=== PATIENT | male | born 1950 | race Caucasian/White ===

== ENCOUNTER 2017-03-13 07:14 | Emergency (ER) | payer OTHER, MEDICARE ==
[~2017-03-13] VITALS: Ht 182.9 cm; Wt 95.7 kg
[~2017-03-13 07:14] MED LIST: ASPI-630 PO; ASPI325T11 PO; ATOR40TA59 PO; CA C1TAB62 PO; CANA100T PO; CARV12.52 PO; CELE200C PO; CETI10CA PO; CINN500C2 PO; CYCL10TA2 PO; DIPH25CA58 PO; DIPH50CA PO; ERYT250T16 PO; EXEN2VIA SQ; FENO145T2 PO; HYDR-2758 PO; IBUP-1060 PO; IBUP100O24 PO; IBUP200T77 PO; INSU100C SQ; INSU100I13 SQ; LEVO500T59 PO; LEVO75TA5 PO; LISI-338 PO; MULT-658 PO; OMEG-113 PO; OMEG300C PO; OXYC-323 PO; POTA10TA12 PO; POTA99TA3 PO; POTASSIUM CHLO10 MEQ PO; PSYL0.527 PO
[2017-03-13 07:20] VITALS: BP 140/96
--- NOTE | 2017-03-13 07:46 | PHYS DOC ---
Past Medical History Past Medical History: Diabetes-Type II, High Cholesterol, Hypertension, Kidney Stone Past Surgical History: Appendectomy, Knee Replacement (Left) Additional Past Surgical Histo: kidney stone removal, hernia repair, left knee arthroscopy Alcohol Use: Rarely Drug Use: None Adult General Chief Complaint Chief Complaint: LOWER EXT PAIN [facility] HPI Patient is a 67 year old male who presents with atraumatic right foot pain developing over the past 2 days. Has constant pain that is achy and radiates proximally with use of his foot. Thought he had plantar fasciitis, so he has been stretching without relief of his symptoms. States it is slightly swollen and has some red discoloration to his medial foot. Denies injury, numbness, tingling, weakness, fever or chills. Review of Systems Review of Systems Constitutional: Denies fever or chills [] Eyes: Denies change in visual acuity, redness, or eye pain [] HENT: Denies nasal congestion or sore throat [] Respiratory: Denies cough or shortness of breath [] Cardiovascular: No additional information not addressed in HPI [] GI: Denies abdominal pain, nausea, vomiting, bloody stools or diarrhea [] : Denies dysuria or hematuria [] Musculoskeletal: Denies back pain [] Integument: Denies rash or skin lesions [] Neurologic: Denies headache, focal weakness or sensory changes [] Endocrine: Denies polyuria or polydipsia [] Allergies Allergies Allergies Coded Allergies Type Severity Reaction Last Updated Verified Penicillins Allergy Intermediate 09/26/16 Yes Physical Exam Physical Exam Constitutional: Well developed, well nourished, no acute distress, non-toxic appearance. [] HENT: Normocephalic, atraumatic, bilateral external ears normal, oropharynx moist, nose normal. [] Eyes: PERRLA, EOMI. [] Neck: Normal range of motion, supple. [] Cardiovascular: Extremities warm and well-perfused [] Lungs & Thorax: Respirations even and unlabored [] Abdomen: soft, no tenderness. [] Skin: Warm, dry, no erythema, no rash. [] Back: Normal ROM. [] Extremities: LLE with no obvious deformity; has some ecchymotic discoloration to medial mid foot; mildly tender to medial mid foot soft tissues with no induration/crepitance/warmth/fluctuance; Can flex/ex toes; Can dorsiflex/ plantar flex ankle; No medial or lateral malleolar tenderness; No 5 th metatarsal base tenderness; SILT holloway/sa/sp/dp/tib distributions; dp and pt pulses equal bilaterally Neurologic: Alert and oriented X 3, normal motor function, normal sensory function, no focal deficits noted. [] Psychologic: Affect normal, judgement normal, mood normal. [] Current Patient Data Vital Signs Vital Signs Date Time Temp Pulse Resp B/P (MAP) Pulse Ox O2 Delivery O2 Flow Rate FiO2 03/13/17 07:20 97.9 96 18 140/96 (111) 94 Room Air 97.9 Radiology/Procedures Radiology/Procedures Ultrasound venous Doppler right lower extremity IMPRESSION: 1. There is no sonographic evidence of deep vein thrombosis in the right lower extremity. 2. Small right popliteal cyst DICTATED and SIGNED BY: TK POWER MD DATE: 03/13/17 0804 Course & Med Decision Making Course & Med Decision Making Pertinent Labs and Imaging studies reviewed. (See chart for details) Imaging is unremarkable. Discussed supportive care. Return precautions given. He understands and agrees with plan. Dragon Disclaimer Dragon Disclaimer This electronic medical record was generated, in whole or in part, using a voice recognition dictation system. Departure Departure Impression: Primary Impression: Right foot pain Disposition: 01 HOME, SELF-CARE Condition: STABLE Referrals: ANTONIO HOLLINGSWORTH (PCP) Patient Instructions: Musculoskeletal Pain Additional Instructions: Take ibuprofen or tylenol as needed for pain. Use ice to help with swelling and pain. Stretch. Follow up with your primary care doctor within 1 week. Return for any concerns. Tai MCCARTHY MD Mar 13, 2017 07:46
--- NOTE | 2017-03-13 08:08 | RAD ---
Right lower extremity venous ultrasound, 03/13/2017 : History: Right foot and ankle swelling Duplex evaluation including grayscale, color flow and spectral Doppler analysis was performed. The femoral and popliteal veins show no filling defects to suggest DVT. The visualized deep veins in the right calf are unremarkable. Incidental note is made of a 2.0 x 0.8 x 5.8 cm elongated fluid collection in the right popliteal fossa compatible with a Davies's cyst. IMPRESSION: 1. There is no sonographic evidence of deep vein thrombosis in the right lower extremity. 2. Small right popliteal cyst
== END 2017-03-13 08:26 | disposition home or self-care (01) ==
LOC: ER 07:14
DX: M79.671 Pain in right foot (principal); E11.9 Type 2 diabetes mellitus without complications; E78.00 Pure hypercholesterolemia, unspecified; I10 Essential (primary) hypertension; Z90.49 Acquired absence of other specified parts of digestive tract; Z87.442 Personal history of urinary calculi; Z96.652 Presence of left artificial knee joint; Z88.0 Allergy status to penicillin
CPT/HCPCS: 93971; 99284-25

== ENCOUNTER → 2017-03-26 | Outpatient (CLI) | payer MEDICARE, OTHER ==
[2017-03-13 07:20] VITALS: BP 140/96
--- NOTE | 2017-03-26 10:04 | RAD ---
MR of the right foot HISTORY: Medial arch and ankle pain. TECHNIQUE: Standard multiplanar sequences were obtained. FINDINGS: Lisfranc ligament complex is intact as is tarsometatarsal alignment. Thickening with increased signal identified at the distal posterior tibial tendon compatible with tendinosis, without high-grade tear. Moderate thickening with mildly increased signal within the plantar aponeurosis with small subjacent enthesophyte and mild subjacent marrow edema. Subtalar joints are patent. Tarsal sinus intact. No bone lesion or acute fracture. No abnormal soft tissue fluid collection. IMPRESSION: 1. Distal posterior tibial tendinosis with high-grade tear or rupture. 2. Moderate plantar fasciitis. Electronically signed by: Maurice Kwon MD (03/26/2017 10:01 AM)
== END | disposition home or self-care (01) ==
LOC: MRI 07:21
PROVIDERS: ATTEND Podiatrist Foot & Ankle Surgery
DX: M25.571 Pain in right ankle and joints of right foot (principal)
CPT/HCPCS: 73718

== ENCOUNTER 2017-04-07 17:19 | Emergency (ER) | payer OTHER ==
[~2017-04-07] VITALS: Ht 182.9 cm; Wt 98.4 kg
[2017-04-07] MEDS ORDERED: IV NORMAL SALINE 1000ML BAG 1,000 ML IV SCH (17:47)
[2017-04-07] MEDS ORDERED: ONDANSETRON PF 4 MG/2 ML VIAL. IV ONE (18:00)
[2017-04-07 18:06] LABS: BASO % 1 % (0-3); EOS % 1 % (0-3); HEMATOCRIT 44.1 % (39.0-53.0); HEMOGLOBIN 15.2 g/dL (13.0-17.5); LYMPH # 0.9 x10^3/uL (1.0-4.8); LYMPH % 11 % (24-48); MEAN CORPUSCULAR HEMOGLOBIN 30 pg (25-35); MEAN CORPUSCULAR HGB CONC 35 g/dL (31-37); MEAN CORPUSCULAR VOLUME 87 fL (79-100); MONO % 8 % (0-9); NEUT % 79 % (31-73); PLATELET COUNT 260 x10^3/uL (140-400); RED BLOOD COUNT 5.07 x10^6/uL (4.30-5.70); WHITE BLOOD COUNT 8.5 x10^3/uL (4.0-11.0)
--- NOTE | 2017-04-07 18:06 | PHYS DOC ---
Past Medical History Past Medical History: Diabetes-Type II, High Cholesterol, Heart Disease, Hypertension, Hypothyroid, Kidney Stone Past Surgical History: Appendectomy, Knee Replacement, Tonsillectomy Additional Past Surgical Histo: lithotripsy, hernia repair, left knee arthroscopy Alcohol Use: Occasionally Drug Use: None Adult General Chief Complaint Chief Complaint: CONTISPATION HPI HPI Patient is a 67 year old male who presents with complaint of constipation and left lower quadrant abdominal pain. Patient states that his symptoms have been present over the past couple days. Patient states that he had a very small bowel movement earlier today that was hard. Patient states he had a normal bowel movement yesterday. Patient states he started developing worsening pain along the left lower quadrant. Patient denies any fevers but was noted to have a mildly elevated temperature during triage. Patient has had nausea no vomiting. Patient states he's had history of urinary tract infection in the past this had no problems with known colitis or diverticulitis in the past. Patient states that he tried taking a Fleet enema earlier today but states that he had only return of fluid in no stool. Patient denies any pressure or impaction in the rectum. Patient rates his pain currently as 6 out of 10. Review of Systems Review of Systems Constitutional: Denies fever or chills [] Eyes: Denies change in visual acuity, redness, or eye pain [] HENT: Denies nasal congestion or sore throat [] Respiratory: Denies cough or shortness of breath [] Cardiovascular: Denies chest pain or edema [] GI: Constipation, nausea, abdominal pain [] : Denies dysuria or hematuria [] Musculoskeletal: Denies back pain or joint pain [] Integument: Denies rash or skin lesions [] Neurologic: Denies headache, focal weakness or sensory changes [] Current Medications Current Medications Current Medications Medications (Trade) Dose Ordered Sig/Judy Start Time Stop Time Status Last Admin Dose Admin Ciprofloxacin (Cipro) 500 mg 1X ONCE 04/07/17 21:45 04/07/17 21:46 DC Info (Do NOT chart on this entry -- for MONITORING) 1 each PRN DAILY PRN 04/07/17 18:15 04/09/17 18:14 Iohexol (Omnipaque 300 Mg/ml) 75 ml 1X ONCE 04/07/17 18:15 04/07/17 18:16 DC 04/07/17 18:40 75 ML Metronidazole (Flagyl) 500 mg 1X ONCE 04/07/17 21:45 04/07/17 21:46 DC Ondansetron HCl (Zofran) 4 mg 1X ONCE 04/07/17 18:00 04/07/17 18:02 DC 04/07/17 19:08 4 MG Sodium Chloride 1,000 ml @ 1,000 mls/hr Q1H 04/07/17 17:47 04/07/17 18:46 DC 04/07/17 19:07 1,000 MLS/HR Allergies Allergies Allergies Coded Allergies Type Severity Reaction Last Updated Verified Penicillins Allergy Intermediate 09/26/16 Yes Physical Exam Physical Exam Constitutional: Alert, febrile, appears in mild discomfort [] HENT: Normocephalic, atraumatic, bilateral external ears normal, oropharynx moist, no oral exudates, nose normal. [] Eyes: PERRLA, EOMI, conjunctiva normal, no discharge. [] Neck: Normal range of motion, no tenderness, supple, no stridor. [] Cardiovascular:Heart rate regular rhythm, no murmur [] Lungs & Thorax: Bilateral breath sounds clear to auscultation [] Abdomen: Bowel sounds normal, soft, mild left lower quadrant and suprapubic tenderness to palpation, no guarding or rebound tenderness, no masses, no pulsatile masses. [] Skin: Warm, dry, no erythema, no rash. [] Back: No tenderness, no CVA tenderness. [] Extremities: No tenderness, no cyanosis, no clubbing, ROM intact, no edema. [] Neurologic: Alert and oriented X 3, normal motor function, normal sensory function, no focal deficits noted. [] Current Patient Data Vital Signs Vital Signs Date Time Temp Pulse Resp B/P (MAP) Pulse Ox O2 Delivery O2 Flow Rate FiO2 04/07/17 20:35 85 161/96 (117) 96 Room Air 04/07/17 17:39 99.5 16 99.5 Lab Values Laboratory Tests Test 04/07/17 17:59 04/07/17 20:00 White Blood Count 8.5 x10^3/uL (4.0-11.0) Red Blood Count 5.07 x10^6/uL (4.30-5.70) Hemoglobin 15.2 g/dL (13.0-17.5) Hematocrit 44.1 % (39.0-53.0) Mean Corpuscular Volume 87 fL (79-100) Mean Corpuscular Hemoglobin 30 pg (25-35) Mean Corpuscular Hemoglobin Concent 35 g/dL (31-37) Red Cell Distribution Width 15.0 % (11.5-14.5) H Platelet Count 260 x10^3/uL (140-400) Neutrophils (%) (Auto) 79 % (31-73) H Lymphocytes (%) (Auto) 11 % (24-48) L Monocytes (%) (Auto) 8 % (0-9) Eosinophils (%) (Auto) 1 % (0-3) Basophils (%) (Auto) 1 % (0-3) Neutrophils # (Auto) 6.7 x10^3uL (1.8-7.7) Lymphocytes # (Auto) 0.9 x10^3/uL (1.0-4.8) L Monocytes # (Auto) 0.7 x10^3/uL (0.0-1.1) Eosinophils # (Auto) 0.1 x10^3/uL (0.0-0.7) Basophils # (Auto) 0.0 x10^3/uL (0.0-0.2) Sodium Level 141 mmol/L (136-145) Potassium Level 4.3 mmol/L (3.5-5.1) Chloride Level 104 mmol/L (98-107) Carbon Dioxide Level 28 mmol/L (21-32) Anion Gap 9 (6-14) Blood Urea Nitrogen 17 mg/dL (8-26) Creatinine 0.9 mg/dL (0.7-1.3) Estimated GFR (Cockcroft-Gault) 84.4 BUN/Creatinine Ratio 19 (6-20) Glucose Level 148 mg/dL (70-99) H Calcium Level 9.7 mg/dL (8.5-10.1) Total Bilirubin 0.5 mg/dL (0.2-1.0) Aspartate Amino Transferase (AST) 22 U/L (15-37) Alanine Aminotransferase (ALT) 28 U/L (16-63) Alkaline Phosphatase 83 U/L (46-116) Total Protein 7.5 g/dL (6.4-8.2) Albumin 3.9 g/dL (3.4-5.0) Albumin/Globulin Ratio 1.1 (1.0-1.7) Lipase 142 U/L (73-393) Urine Collection Type Unknown Urine Color Yellow Urine Clarity Clear Urine pH 6.5 Urine Specific [place] >=1.030 Urine Protein Negative mg/dL (NEG-TRACE) Urine Glucose (UA) >=1000 mg/dL (NEG) Urine Ketones (Stick) Negative mg/dL (NEG) Urine Blood Negative (NEG) Urine Nitrite Negative (NEG) Urine Bilirubin Negative (NEG) Urine Urobilinogen Dipstick 0.2 mg/dL (0.2 mg/dL) Urine Leukocyte Esterase Negative (NEG) Urine RBC Occ /HPF (0-2) Urine WBC Occ /HPF (0-4) Urine Squamous Epithelial Cells Few /LPF Urine Bacteria 0 /HPF (0-FEW) Laboratory Tests 04/07/17 17:59 Laboratory Tests 04/07/17 17:59 EKG EKG Not performed [] Radiology/Procedures Radiology/Procedures [facility] [address] [place] [address] IMAGING REPORT Signed PATIENT: MYRNA HARVEY ACCOUNT: [id number] : 1950 LOCATION: ER AGE: 67 SEX: M EXAM STATUS: REG ER ORD. PHYSICIAN: GAYLE SAN MD REASON: left lower quadrant abdominal pain PROCEDURE: CT ABD PELV W/ IV CONTRST ONLY CT of the abdomen and pelvis with contrast, 04/07/2017: HISTORY: Left lower quadrant pain Multidetector imaging was performed following an IV bolus injection of iodinated contrast material. No oral contrast material was administered for this study. The liver is unremarkable. No gallbladder abnormality is seen. The pancreas shows no abnormality. The spleen is of normal size. There is mild bilateral renal cortical scarring. There are single small cysts in both kidneys. Several small medullary calcifications are noted bilaterally. The largest of these on the left measures 6 mm. There is no evidence of hydronephrosis. Aortoiliac calcific plaquing is present without evidence of aneurysm. No abdominal or pelvic adenopathy is seen. There is mild nonspecific prostatic enlargement. There appears to be intestinal malrotation with the majority of the small bowel loops lying on the right and redundant loops of colon on the left. There is a moderate amount of stool in portions of the colon. Several small sigmoid diverticula are seen. No paracolic inflammation or obstruction is evident. No free fluid or free air is identified in the abdomen or pelvis. Mild scattered degenerative changes are present in the spine with a slight spondylolisthesis at L5-S1. IMPRESSION: 1. Small bilateral renal cysts. 2. Small nonobstructing bilateral intrarenal calculi. 3. Intestinal malrotation. 4. Minimal diverticulosis. 5. Nonspecific prostatic enlargement. Electronically signed by: Tom Fernandes MD (04/07/2017 7:19 PM) DICTATED and SIGNED BY: TOM FERNANDES MD DATE: 04/07/171899 CC: ANTONIO HOLLINGSWORTH; GAYLE SAN MD ~ [] Course & Med Decision Making Course & Med Decision Making Pertinent Labs and Imaging studies reviewed. (See chart for details) Patient's CT scan was interpreted as normal by the radiologist. On my evaluation , the patient does show signs of mild clonic wall thickening with no evidence of fecal impaction. Given the patient's mildly elevated temperature, early colitis or possible diverticulitis is a consideration. For this reason I have electively chosen to treat the patient empirically for possible colitis/ diverticulitis. Patient started on Flagyl and Cipro. The patient was written for prescriptions for Cipro, Flagyl, Nageezi, and Zofran for outpatient treatment. Advise follow-up in 3-5 days a primary doctor for reevaluation and return to emergency department for any worsening symptoms. Patient voiced understanding and in agreement with treatment plan. Dragon Disclaimer Dragon Disclaimer This electronic medical record was generated, in whole or in part, using a voice recognition dictation system. Departure Departure Impression: Primary Impression: Abdominal pain Additional Impression: Constipation Disposition: 01 HOME, SELF-CARE Condition: IMPROVED Referrals: ANTONIO HOLLINGSWORTH (PCP) Patient Instructions: Abdominal Pain (Nonspecific), Constipation, Adult Additional Instructions: Follow-up with your primary doctor in the next 3-5 days. Return to the emergency department for any worsening symptoms. Scripts Ondansetron (ZOFRAN ODT) 4 Mg Tab.rapdis 1 TAB SL Q8HRS Y for NAUSEA/VOMITING, #15 TAB Prov: GAYLE SAN MD 04/07/17 Hydrocodone/Apap 5-325 (NORCO 5-325 TABLET) 1 Each Tablet 1-2 TAB PO Q4-6HRS Y for PAIN, #20 TAB Prov: GAYLE SAN MD 04/07/17 Metronidazole (FLAGYL) 500 Mg Tablet 500 MG PO TID, #30 TAB Prov: GAYEL SAN MD 04/07/17 Ciprofloxacin Hcl (CIPRO) 500 Mg Tablet 1 TAB PO BID, #20 TAB Prov: GAYLE SAN MD 04/07/17 Problem Qualifiers Primary Impression: Abdominal pain Abdominal location: left lower quadrant Qualified Codes: R10.32 - Left lower quadrant pain Additional Impression: Constipation Constipation type: unspecified constipation type Qualified Codes: K59.00 - Constipation, unspecified GAYLE SAN MD Apr 07, 2017 18:06
[2017-04-07] MEDS ORDERED: IOHEXOL 300 MG/ML 75 ML VIAL IV ONE (18:15)
[2017-04-07] MEDS ORDERED: CONTRAST GIVEN MC PRN (18:15)
[2017-04-07 18:29] LABS: CALCIUM 9.7 mg/dL (8.5-10.1); CREATININE 0.9 mg/dL (0.7-1.3); GFR 84.4; POTASSIUM 4.3 mmol/L (3.5-5.1)
[2017-04-07 18:35] LABS: ALBUMIN 3.9 g/dL (3.4-5.0); ALBUMIN/GLOBULIN RATIO 1.1 (1.0-1.7); TOTAL BILIRUBIN 0.5 mg/dL (0.2-1.0); TOTAL PROTEIN 7.5 g/dL (6.4-8.2)
--- NOTE | 2017-04-07 19:22 | RAD ---
CT of the abdomen and pelvis with contrast, 04/07/2017: HISTORY: Left lower quadrant pain Multidetector imaging was performed following an IV bolus injection of iodinated contrast material. No oral contrast material was administered for this study. The liver is unremarkable. No gallbladder abnormality is seen. The pancreas shows no abnormality. The spleen is of normal size. There is mild bilateral renal cortical scarring. There are single small cysts in both kidneys. Several small medullary calcifications are noted bilaterally. The largest of these on the left measures 6 mm. There is no evidence of hydronephrosis. Aortoiliac calcific plaquing is present without evidence of aneurysm. No abdominal or pelvic adenopathy is seen. There is mild nonspecific prostatic enlargement. There appears to be intestinal malrotation with the majority of the small bowel loops lying on the right and redundant loops of colon on the left. There is a moderate amount of stool in portions of the colon. Several small sigmoid diverticula are seen. No paracolic inflammation or obstruction is evident. No free fluid or free air is identified in the abdomen or pelvis. Mild scattered degenerative changes are present in the spine with a slight spondylolisthesis at L5-S1. IMPRESSION: 1. Small bilateral renal cysts. 2. Small nonobstructing bilateral intrarenal calculi. 3. Intestinal malrotation. 4. Minimal diverticulosis. 5. Nonspecific prostatic enlargement. Electronically signed by: Tom Fernandes MD (04/07/2017 7:19 PM)
[2017-04-07 20:13] LABS: BILIRUBIN,URINE NEGATIVE (NEG); GLUCOSE,URINE >=1000 mg/dL (NEG); NITRITE,URINE NEGATIVE (NEG); PH,URINE 6.5; PROTEIN,URINE NEGATIVE (NEG-TRACE); UROBILINOGEN,URINE 0.2 mg/dL (0.2 mg/dL)
[2017-04-07 20:33] LABS: BACTERIA,URINE 0 /HPF (0-FEW); RBC,URINE OCC /HPF (0-2); WBC,URINE OCC /HPF (0-4)
[2017-04-07 20:34] LABS: SQUAMOUS EPITHELIAL CELL,UR FEW /LPF
[2017-04-07] MEDS ORDERED: ONDA4TAB10 SL (21:33)
[2017-04-07] MEDS ORDERED: HYDR-971 PO (21:33)
[2017-04-07] MEDS ORDERED: METR500T PO (21:33)
[2017-04-07] MEDS ORDERED: CIPR500T94 PO (21:33)
[2017-04-07] MEDS ORDERED: CIPROFLOXACIN HCL 250 MG TABLET. PO ONE (21:45)
[2017-04-07] MEDS ORDERED: metroNIDAZOLE 500 MG TABLET PO ONE (21:45)
[2017-04-07 22:00] VITALS: BP 157/97
== END 2017-04-07 22:15 | disposition home or self-care (01) ==
LOC: ER 17:19
DX: K59.00 Constipation, unspecified (principal); E11.9 Type 2 diabetes mellitus without complications; E78.00 Pure hypercholesterolemia, unspecified; I11.9 Hypertensive heart disease without heart failure; E03.9 Hypothyroidism, unspecified; Z87.442 Personal history of urinary calculi; Z90.49 Acquired absence of other specified parts of digestive tract; Z87.440 Personal history of urinary (tract) infections; Z96.652 Presence of left artificial knee joint; Z88.0 Allergy status to penicillin
CPT/HCPCS: 36415; 74177; 80053; 81001; 83690; 85027; 96361; 96374; 99285; J2405; J7030; Q9967

== ENCOUNTER → 2019-12-04 | Outpatient (CLI) | payer MEDICARE ==
[~2019-12-04] MED LIST changes: +CARV12.511 PO; -CARV12.52 PO; +CIPR500T94 PO; -FENO145T2 PO; +FENO145T3 PO; -HYDR-2758 PO; +HYDR-2761 PO; +HYDR-3164 PO; -IBUP100O24 PO; +IBUP100O25 PO; +METR500T PO; +ONDA4TAB10 SL; -OXYC-323 PO; +OXYC1TAB15 PO; +POTASSIUM CHLO10 ME1 PO; -POTASSIUM CHLO10 MEQ PO
--- NOTE | 2019-12-04 11:00 | KCIC ---
MR of the right shoulder HISTORY: Impingement syndrome. Chronic pain. TECHNIQUE: Routine multiplanar sequences are obtained. FINDINGS: The acromioclavicular joint is degenerative. Mild undersurface mass effect. Generalized rotator cuff tendinosis. Broad irregular partial-thickness bursal surface tearing of the supraspinatus tendon partial thickness articular side tearing of the supraspinatus tendon. There is some ill-defined full-thickness through and through tearing at the myotendinous junction over a short segment of supraspinatus tendon, series 6, image 13 and 14. No broad fluid filled gap is seen however. No retraction. Mild subdeltoid bursal effusion. No significant glenohumeral joint effusion. Signal within the posterosuperior labrum, accentuated by smoke motion degradation but suspicious for a small degenerative tear. Biceps tendon is intact. No acute fracture. No aggressive bone destruction. IMPRESSION: 1. Generalized rotator cuff tendinosis. Articular and bursal surface tearing of the supraspinatus tendon, with a small component of full-thickness subcentimeter tearing at the myotendinous junction. No retraction. 2. Small posterosuperior labral tear. Electronically signed by: Maurice Kwon MD (12/04/2019 10:57 AM) [id number]
== END ==
LOC: KCIC MRI 07:48
PROVIDERS: ATTEND Orthopaedic Surgery
DX: M75.111 Incomplete rotator cuff tear or rupture of right shoulder, not specified as traumatic (principal); M75.41 Impingement syndrome of right shoulder
CPT/HCPCS: 73221

== ENCOUNTER 2020-06-03 19:03 | Emergency (ER) | payer MEDICARE ==
[~2020-06-03] VITALS: Ht 180.3 cm; Wt 89.0 kg
--- NOTE | 2020-06-03 19:52 | PHYS DOC ---
Past Medical History Past Medical History: Diabetes-Type II, High Cholesterol, Heart Disease, Hypertension, Hypothyroid, Kidney Stone Past Surgical History: Appendectomy, Knee Replacement, Tonsillectomy Additional Past Surgical Histo: lithotripsy, hernia repair, left knee arthroscopy Smoking Status: Never Smoker Alcohol Use: Occasionally Drug Use: None General Adult EDM: Chief Complaint: CONSTIPATION HPI: HPI: Patient is a 70 year old male who presents with a chief complaint of constipation. Patient has had constipation for last 2 days. Patient recently had rotator cuff surgery and is taking hydrocodone has not had a bowel movement 2 days. Patient describes some moderate left lower quadrant crampy abdominal pain that radiates to the back. Pain is worse with palpation and certain movem ents pain is intermittent. Patient denies any nausea vomiting or fever. Review of Systems: Review of Systems: Constitutional: Denies fever or chills. [] Eyes: Denies change in visual acuity. [] HENT: Denies nasal congestion or sore throat. [] Respiratory: Denies cough or shortness of breath. [] Cardiovascular: Denies chest pain or edema. [] GI: Complains abdominal pain and constipation but no nausea vomiting or diarrhea : Denies dysuria. [] Musculoskeletal: Denies back pain or joint pain. [] Integument: Denies rash. [] Neurologic: Denies headache, focal weakness or sensory changes. [] Endocrine: Denies polyuria or polydipsia. [] Lymphatic: Denies swollen glands. [] Psychiatric: Denies depression or anxiety. [] Heart Score: Risk Factors: Risk Factors: DM, Current or recent (<one month) smoker, HTN, HLP, family history of CAD, obesity. Risk Scores: Score 0 - 3: 2.5% MACE over next 6 weeks - Discharge Home Score 4 - 6: 20.3% MACE over next 6 weeks - Admit for Clinical Observation Score 7 - 10: 72.7% MACE over next 6 weeks - Early Invasive Strategies Allergies: Allergies: Allergies Coded Allergies Type Severity Reaction Last Updated Verified Penicillins Allergy Intermediate 09/26/16 Yes Physical Exam: PE: Constitutional: Well developed, well nourished, no acute distress, non-toxic appearance. [] HENT: Normocephalic, atraumatic, bilateral external ears normal, no trismus, nose normal. [] Eyes: PERRLA, EOMI, conjunctiva normal, no discharge. [] Neck: Normal range of motion, no tenderness, supple, no stridor. [] Cardiovascular:Heart rate regular rhythm, peripheral pulses intact, cap refill brisk Lungs & Thorax: Bilateral breath sounds clear, no respiratory distress Abdomen: Mild distention with left lower quadrant tenderness no guarding or rebound no pulsatile masses Skin: Warm, dry, no erythema, no rash. [] Back: No tenderness, no CVA tenderness. [] Extremities: Limited range of motion right shoulder Neurologic: Alert and oriented X 3, normal motor function, normal sensory function, no focal deficits noted. [] Psychologic: Affect normal, judgement normal, mood normal. [] Current Patient Data: Vital Signs: Vital Signs Date Time Temp Pulse Resp B/P (MAP) Pulse Ox O2 Delivery O2 Flow Rate FiO2 06/03/20 19:35 98.0 107 18 128/83 (98) 92 Room Air 98.0 EKG: EKG: [] Radiology/Procedures: Radiology/Procedures: [] Course & Med Decision Making: Course & Med Decision Making Pertinent Labs and Imaging studies reviewed. (See chart for details) [] Patient reassessed at 10:25 PM and is having a bowel movement feels much better. 70-year-old male presents with constipation was caused by opiates following shoulder surgery. Patient was placed on a stool softener and will stop taking his opiates. Patient with bowel movement ER. Fly Disclaimer: Fly Disclaimer: This electronic medical record was generated, in whole or in part, using a voice recognition dictation system. Departure Departure Impression: Primary Impression: Constipation Disposition: 01 HOME, SELF-CARE Condition: STABLE Referrals: ANTONIO HOLLINGSWORTH (PCP) 2-3 DAYS Patient Instructions: Constipation, Adult Additional Instructions: EMERGENCY DEPARTMENT GENERAL DISCHARGE INSTRUCTIONS THANK YOU for coming to [facility] Emergency Department (ED) today and trusting us with your care. We trust that you had a positive experience in our Emergency Department. If you wish to speak to the department Management you can contact the emergency department coordinator at . YOUR FOLLOW UP INSTRUCTIONS ARE FOLLOWS: Do you have a private doctor? If you do not have a private doctor, please ask for a resource list of physicians or clinics that may be able to assist you with follow up care. The Emergency Physician has interpreted your x-rays. The X-ray specialist will also review them. If there is a change in the findings you will be notified in 48 hours when at all possible. A lab test or lab culture may have been done, your results will be reviewed and you will be notified if you need a change in treatment. ADDITIONAL INSTRUCTIONS AND INFORMATION Your care today has been supervised by a physician who is specially trained in emergency care. Many problems require more than one evaluation for a complete diagnosis and treatment. We recommend that you schedule your follow up appointment as recommended to ensure complete treatment of your illness or injury. If you are unable to obtain follow up care and continue to have a problem, or if your condition worsens we recommend that you return to the ED. We are not able to safely determine your condition over the phone nor are we able to give sound medical advice over the phone. For these safety reasons, if you call for medical advice we will ask you to come to the ED for further evaluation If you have any questions regarding these discharge instructions please call the ED at . SAFETY INFORMATION In the interest of safety, wellness, and injury prevention; we encourage you to wear your seatbelt, if you smoke; quit smoking, and we encourage your family to use protective helmet for bicycling and other sporting events that present an increased risk for head injury. IF YOUR SYMPTOMS WORSEN OR NEW SYMPTOMS DEVELOP, OR YOU HAVE CONCERNS ABOUT YOUR CONDITION; OR IF YOUR CONDITION WORSENS WHILE YOU ARE WAITING FOR YOUR FOLLOW UP APPOINTMENT; EITHER CONTACT YOUR PRIMARY CARE DOCTOR, THE PHYSICIAN WHOSE NAME AND NUMBER YOU WERE GIVEN, OR RETURN TO THE ED IMMEDIATELY. Scripts Docusate Sodium (COLACE) 100 Mg Capsule 1 CAP PO BID for 30 Days, #60 CAP 0 Refills Prov: ANY CHIU MD 06/03/20 Justicifation of Admission Dx: Justifications for Admission: Justification of Admission Dx: N/A ANY CHIU MD Jun 03, 2020 19:52
--- NOTE | 2020-06-03 19:59 | RAD ---
KUB History: Reason: constipation / Spl. Instructions: / History: Technique: Supine view the abdomen. Comparison: CT April 07, 2017 Findings: Mildly dilated loops of small and large bowel throughout the abdomen. Moderate distal colonic and rectal stool. Lower lumbar spondylosis. Impression: 1. Mildly dilated small and large bowel throughout the abdomen with moderate distal colonic and rectal stool, may represent fecal impaction. Electronically signed by: Emile Cheung DO (06/03/2020 7:56 PM) DEANN
[2020-06-03] MEDS ORDERED: DOCUSATE SODIUM 283 MG/5 ML ENEMA. PR ONE (20:30)
[2020-06-03] MEDS ORDERED: DOCU-109 PO (22:29)
[2020-06-03 22:40] VITALS: BP 130/87
== END 2020-06-03 22:40 | disposition home or self-care (01) ==
LOC: ER 19:03
DX: K59.00 Constipation, unspecified (principal); R10.32 Left lower quadrant pain; E11.9 Type 2 diabetes mellitus without complications; E78.00 Pure hypercholesterolemia, unspecified; I11.9 Hypertensive heart disease without heart failure; E03.9 Hypothyroidism, unspecified; Z90.89 Acquired absence of other organs; Z98.890 Other specified postprocedural states; Z88.0 Allergy status to penicillin
CPT/HCPCS: 74018; 99283

== ENCOUNTER → 2020-08-17 | Outpatient (CLI) | payer MEDICARE ==
[2020-08-02 11:00] VITALS: BP 130/80
[~2020-08-17] MED LIST changes: +DOCU-109 PO; +IBUP-1670 PO; +LOSA100T14 PO; +OMEP40CA45 PO
--- NOTE | 2020-08-17 15:41 | KCIC ---
EXAMINATION: MRI RIGHT SHOULDER WITHOUT IV CONTRAST CLINICAL HISTORY: Right shoulder pain concerning for recurrent rotator cuff tear following fall one week ago. Previous surgery 05/27. TECHNIQUE: Multiplanar multisequential images obtained through the shoulder without intravenous contrast. COMPARISON: Right shoulder radiographs 08/02/2020, MRI right shoulder 12/04/2019 FINDINGS: Multifocal susceptibility artifact in the superficial soft tissues and 2 tendon anchors in the greater tuberosity related to prior rotator cuff repair. TENDONS: - Supraspinatus: No definite full-thickness tear. Small ill-defined fluid signal extending into the tendon substance along from the bursal surface, possibly postsurgical versus low-grade partial thickness tear (series 6, image 17). - Infraspinatus: No definite full-thickness tear. - Subscapularis: No full-thickness tear. - Teres Minor: Intact. - Biceps Tendon: The long head biceps tendon is intact and appropriately located. MUSCLES: Muscle bulk and signal intensity are within normal limits. LABRUM: Posterior and inferior labral degeneration without discrete tear. GLENOHUMERAL JOINT: - Joint Fluid: No joint effusion or synovitis. - Cartilage: No full-thickness chondral defect. ACROMIOCLAVICULAR JOINT: Moderate to marked hypertrophic degenerative changes. BONES/MARROW: No evidence of acute fracture or suspicious marrow replacing process. OTHER: Moderate thickening and mild fluid in the subacromial/subdeltoid bursa, compatible with bursitis. IMPRESSION: Postoperative changes related to interval rotator cuff repair as described without definite full-thickness rotator cuff tear. Findings compatible with subacromial/subdeltoid bursitis. Electronically signed by: Blake Vela DO (08/17/2020 3:38 PM) [id number]
== END ==
LOC: KCIC MRI 13:56
PROVIDERS: ATTEND Orthopaedic Surgery
DX: M75.101 Unspecified rotator cuff tear or rupture of right shoulder, not specified as traumatic (principal)
CPT/HCPCS: 73221

== ENCOUNTER → 2021-02-08 | Outpatient (CLI) | payer MEDICARE ==
[2020-08-02 11:00] VITALS: BP 130/80
[~2021-02-08] MED LIST changes: -ERYT250T16 PO; +ERYT250T84 PO; -LISI-338 PO; +LISI-517 PO
[2021-02-08 10:15] LABS: BASO % 1 % (0-3); EOS # 0.1 x10^3/uL (0.0-0.7); EOS % 3 % (0-3); HEMATOCRIT 39.3 % (39.0-53.0); HEMOGLOBIN 13.6 g/dL (13.0-17.5); LYMPH # 0.5 x10^3/uL (1.0-4.8); LYMPH % 16 % (24-48); MEAN CORPUSCULAR HEMOGLOBIN 31 pg (25-35); MEAN CORPUSCULAR HGB CONC 35 g/dL (31-37); MEAN CORPUSCULAR VOLUME 90 fL (79-100); MONO # 0.4 x10^3/uL (0.0-1.1); MONO % 12 % (0-9); NEUT # 2.3 x10^3/uL (1.8-7.7); NEUT % 69 % (31-73); PLATELET COUNT 225 x10^3/uL (140-400); RED BLOOD COUNT 4.34 x10^6/uL (4.30-5.70); WHITE BLOOD COUNT 3.4 x10^3/uL (4.0-11.0)
--- NOTE | 2021-02-08 10:24 | EKG ---
[facility] [address] [place] [address] Test Date: 2021-02-08 Test Time: 10:20:07 Pat Name: MYRNA HARVEY Department: Room: Gender: M Billing Machine Operator: : [id number] Requested By: JOSE CHAUDHARI Order Number: [id number] Reading MD: Raimundo Singleton MD Measurements Intervals [place] Rate: 71 P: 36 AR: 230 QRS: 70 QRSD: 78 T: 1 QT: 362 QTc: 398 Interpretive Statements SINUS RHYTHM PROLONGED AR INTERVAL Electronically Signed On 02-10-2021 10:46:08 CDT by Raimundo Singleton MD
[2021-02-08 10:38] LABS: ALBUMIN 3.9 g/dL (3.4-5.0); CALCIUM 8.6 mg/dL (8.5-10.1); CREATININE 2.5 mg/dL (0.7-1.3); GFR 25.7; POTASSIUM 4.5 mmol/L (3.5-5.1)
--- NOTE | 2021-02-08 15:10 | RAD ---
Chest, PA and Lateral: Technique: PA and lateral views of the chest were obtained. History: Preop. Comparison: None. Findings: The heart and pulmonary vasculature appear within normal limits. The lungs are clear. The pleural ma rgins are clear. Impression: No acute chest process is seen. Electronically signed by: Louis Dickinson MD (02/08/2021 3:08 PM) [id number]
[2021-02-09 00:13] LABS: HEMOGLOBIN A1C 9.8 % (4.8-5.6)
== END ==
LOC: SURGPAT 09:17
PROVIDERS: ATTEND Orthopaedic Surgery
DX: Z01.818 Encounter for other preprocedural examination (principal); M17.11 Unilateral primary osteoarthritis, right knee; R94.31 Abnormal electrocardiogram [ECG] [EKG]
CPT/HCPCS: 36415; 71046; 80048; 82040; 82306; 83036; 85025; 85610; 85651; 87641; 93005